=== PATIENT | male | born 1965 | race Caucasian/White ===

== ENCOUNTER 2023-10-05 16:06 | Emergency (ER) | payer BC, SELFPAY ==
[2023-10-05 16:23] VITALS: BP 149/92
[2023-10-05 16:48] LABS: % Basophils 0.7 % (0-2); % Eosinophils 6.9 % (0-6); % Immature Granulocytes 0.7 % (0-0.5); % Lymphocytes 25.5 % (20.5-51.1); % Monocytes 10.3 % (1.7-9.3); % Neutrophils 55.9 % (42.2-75.2); Absolute Basophils 0.1 10^3/uL (0-0.2); Absolute Eosinophils 0.6 10^3/uL (0-0.7); Absolute Immature Granulocytes 0.1 10^3/uL (0-0.05); Absolute Lymphocytes 2.2 10^3/uL (1.2-3.4); Absolute Monocytes 0.9 10^3/uL (0.1-0.6); Absolute Neutrophils 4.8 10^3/uL (1.4-6.5); Hematocrit 43.2 % (39.0-52.0); Mean Corp Hgb Conc. 34.7 g/dL (33.0-37.0); Mean Corpuscular Hgb 28.5 pg (27.0-31.0); Mean Platelet Volume 11.5 fL (7.4-10.4); Nucleated Red Blood Cells % 0 % (-); Platelet Count 219 10^3/uL (130-400); Red Blood Cell Count 5.27 10^6/uL (4.70-6.10); Red Cell Dist. Width 13.5 % (11.5-14.5); White Blood Cell Count 8.6 10^3/uL (4.8-10.8)
[2023-10-05 17:04] LABS: ALT (SGPT) 66 U/L (0-50); AST (SGOT) 45 U/L (17-59); Albumin 4.5 g/dl (3.5-5.0); Alkaline Phosphatase 84 U/L (38-126); Blood Urea Nitrogen 14 mg/dl (9-20); Calcium 9.5 mg/dl (8.4-10.2); Carbon Dioxide 27 mmol/L (22-30); Chloride 103 mmol/L (98-107); Glucose 114 mg/dl (70-99); Potassium 4.1 mmol/L (3.5-5.1); Sodium 136 mmol/L (135-145); Total Bilirubin 0.5 mg/dl (0.2-1.3); Total Protein 7.2 g/dl (6.3-8.2); eGFR > 60.00
[2023-10-05 17:14] LABS: NT-proBNP < 20.0 pg/ml; Troponin I < 0.012 ng/ml
--- NOTE | 2023-10-05 19:42 | ED.GENMED ---
History of Present Illness
General
Chief Complaint: Blood Pressure Problem
Source: patient
Exam Limitations: none
Time Seen by Provider: 10/05/23 18:34
Nursing documentation reviewed up to this point in time: agreed with
Travel History
Have you had any contact with someone who has COVID-19?: No
Do you have any symptoms of coronavirus? Fever > 100 degrees, chills, cough, shortness of breath, sore throat, loss of taste or smell, muscle aches, or headache?: No
History of Present Illness
History of Present Illness:
58-year-old male with past medical history of hyperlipidemia, anxiety presenting to the emergency department today with concerns of elevated blood pressure at home as well as intermittent episodes of lightheadedness headache and some shortness of
breath with exertion. Has follow-up with his primary care doctor for this has a scheduled appoint with cardiology in 1 month but was concerned that he had ongoing elevated blood pressure today in the 150s over 100s at home.
Past History
Past History
ED Past Medical History: Hypercholesterolemia, Psychiatric and Other ( kidney stones)
ED Past Surgical History: Urological
Social History
Tobacco: Former smoker
Alcohol: Occasional
Drug: None
Personal:
Living: with family
Employment: Employed
Family History
Family History: Other (His father had bladder cancer and nephrectomy)
Review of Systems
Review of Systems
Allergies reviewed?: Yes
All Other Systems: ROS reviewed and negative except as documented in HPI and ROS
Phy Exam
Physical Exam
Physical Exam:
GENERAL: Alert , in no apparent distress
EYE: pupils equal and reactive
NECK: Supple, no significant adenopathy.
ENT: o/p clr, mmm.
CARDIAC: Regular rate and rhythm .
LUNGS: Clear breath sounds bilaterally, no acute respiratory distress, no wheezes/rales/rhonchi
ABDOMEN: Soft, without focal tenderness, no r/g, no cvat
NEUROLOGICAL: Alert and oriented, no focal neuro deficits
SKIN: Warm and dry, skin intact.
MUSCULOSKELETAL: No edema, well perfused.
PSYCH: Normal and appropriate interaction.
Course
Orders/Labs/Results
Orders:
Orders
10/05/23 16:25
ECG [Electrocardiogram (*1)] Urgent
Reason for Study: Hypertension, Benign
CR Chest - 2 Views Urgent
Comment:
Reason For Exam: high blood pressure
10/05/23 16:26
EKG- Treatment ONCE
10/05/23 16:39
Complete Blood Count/With Diff Urgent
Comprehensive Metabolic Panel Urgent
NT-proBNP Urgent
Troponin I Urgent
10/05/23 19:41
EKG [Electrocardiogram (*1)] Urgent
Reason for Study: Fatigue / Weakness
EKG- Treatment ONCE
10/05/23 19:48
Troponin I Urgent
Abnormal Lab Results
10/05/23
16:39
MPV 11.5 H fL
(7.4-10.4)
Abs Immat Gran (auto) 0.1 H 10^3/uL
(0-0.05)
Absolute Monos (auto) 0.9 H 10^3/uL
(0.1-0.6)
Immature Gran % 0.7 H %
(0-0.5)
Monocytes % 10.3 H %
(1.7-9.3)
Eosinophils % 6.9 H %
(0-6)
Glucose 114 H mg/dl
(70-99)
ALT 66 H U/L
(0-50)
10/05/23 16:39
10/05/23 16:39
Vital Signs
Initial and Last Documented VS:
Initial Vital Signs
Temp Pulse Resp BP Pulse Ox
98.3 F 92 20 149/92 99
10/05/23 16:23 10/05/23 16:23 10/05/23 16:23 10/05/23 16:23 10/05/23 16:23
Last Documented Vital Signs
Temp Pulse Resp BP Pulse Ox
98.3 F 92 20 125/88 96
10/05/23 16:23 10/05/23 16:23 10/05/23 16:23 10/05/23 20:00 10/05/23 20:05
MDM/Problems Addressed
MDM/Problems Addressed:
Patient is a well-appearing 58-year-old male in no obvious distress vital signs normal upon arrival blood pressure slightly elevated in the 140s over 90s. Normal heart lung examination. Initial EKG normal labs unremarkable troponin negative. BNP
low. Repeat trop negative. Pt well appearing throughout ER stay. BP improving. Stable for outpt cardiology f/u. Return precuations given
*Critical Care Note
Total Time (30-74mins, 75-104mins- exclusive of procedures): Not Applicable
ED Attending Note
-
Portions of this chart may have been created with voice recognition software.� Occasional wrong word or��sound alike� substitutions may have occurred due to the inherent limitations of voice recognition software.
Discharge Plan
Departure
Patient Disposition: Home (Routine Discharge)
Date of Disposition: 10/05/23
Time of Disposition: 20:33
Patient with high blood pressure during this ER visit?: No
Condition: Good
Covid-19: Not Applicable
Discharge Problem:
Chest pain
Instructions: Chest Pain CBC Follow Up
Prescriptions:
No Action
rosuvastatin 10 MG tablet
10 mg PO DAILY
escitalopram oxalate 5 MG tablet
5 mg PO DAILY
Patient Comments:
on hold while on Levaquin
benzonatate 200 MG capsule
200 mg PO TIDPRN PRN (Reason: cough)
ibuprofen [Advil Liqui-Gel] 200 MG capsule
200 mg PO Q6HPRN PRN (Reason: fever)
acetaminophen 500 MG tablet
1,000 mg PO Q6HPRN PRN (Reason: fever)
zinc 50 MG tablet
50 mg PO DAILY
Bifidobacterium infantis [Align] 4 MG capsule
4 mg PO DAILY
cholecalciferol (vitamin D3) 2,000 UNITS tablet
2,000 units PO DAILY
melatonin 3 MG tablet
3 mg PO HS 0RF
aspirin 81 MG tablet,chewable
81 mg PO DAILY 0RF
dexamethasone [Decadron] 6 MG tablet
6 mg PO DAILY Qty: 2 0RF
Activity Restrictions/Additional Instructions:
You came to the ER with concerns of multiple symptoms. Here you are very reassuring evaluation. Please follow close with cardiology next week. Return to the emergency department any worsening, new or concerning symptoms.
Interventions
Interventions:
*Risk Screen - Suicide Last Done: 10/05/23 16:23
*General Assessment Last Done: 10/05/23 16:23
ED- Cardiac Assessment Last Done: 10/05/23 19:05
ED- Neurological Assessment Last Done: 10/05/23 19:05
ED- Pulmonary Assessment Last Done: 10/05/23 19:05
[2023-10-05 20:00] VITALS: BP 125/88
[2023-10-05 20:21] LABS: Troponin I < 0.012 ng/ml
[2023-10-05 20:40] VITALS: BP 133/94
== END 2023-10-05 20:50 | disposition home or self-care (01) ==
LOC: EMR 16:06
PROVIDERS: Emergency Medicine; Physician Assistant; EMERGENCY PHYSICIAN Emergency Medicine; FAMILY PHYSICIAN Family Medicine
DX: R07.89 Other chest pain (principal); I10 Essential (primary) hypertension; E78.00 Pure hypercholesterolemia, unspecified; F41.9 Anxiety disorder, unspecified; Z87.442 Personal history of urinary calculi; Z87.891 Personal history of nicotine dependence
CPT/HCPCS: 99283; 71046; 80053; 83880; 84484; 85025; 93005

== ENCOUNTER → 2023-10-09 15:11 | Outpatient (REF) | payer SELFPAY | LOC: HWRAD 15:11 | PROVIDERS: ATTENDING PHYSICIAN Family Medicine | DX: E78.2 Mixed hyperlipidemia (principal) | CPT/HCPCS: 75571 ==

== ENCOUNTER → 2023-10-10 09:31 | Outpatient (REF) | payer BC, SELFPAY | LOC: HWRAD 09:31 | PROVIDERS: ATTENDING PHYSICIAN Family Medicine | DX: R19.00 Intra-abdominal and pelvic swelling, mass and lump, unspecified site (principal) | CPT/HCPCS: 74177; Q9967 ==

== ENCOUNTER → 2023-10-30 14:47 | Outpatient (REF) | payer BC, SELFPAY | LOC: DHCBC HW 14:47 | PROVIDERS: ATTENDING PHYSICIAN Internal Medicine Cardiovascular Disease; FAMILY PHYSICIAN Family Medicine | DX: I10 Essential (primary) hypertension (principal); R94.31 Abnormal electrocardiogram [ECG] [EKG] | CPT/HCPCS: 93306 ==

== ENCOUNTER 2024-06-30 20:22 | Emergency (ER) | payer BC, SELFPAY ==
[2024-06-30 20:26] VITALS: BP 149/113
[2024-06-30 20:42] LABS: % Basophils 0.2 % (0-2); % Eosinophils 8.5 % (0-6); % Immature Granulocytes 0.5 % (0-0.5); % Lymphocytes 15.9 % (20.5-51.1); % Monocytes 10.5 % (1.7-9.3); % Neutrophils 64.4 % (42.2-75.2); Absolute Eosinophils 1.2 10^3/uL (0-0.7); Absolute Immature Granulocytes 0.1 10^3/uL (0-0.05); Absolute Lymphocytes 2.3 10^3/uL (1.2-3.4); Absolute Monocytes 1.5 10^3/uL (0.1-0.6); Absolute Neutrophils 9.1 10^3/uL (1.4-6.5); Hematocrit 50.3 % (39.0-52.0); Hemoglobin 16.9 g/dL (13.0-18.0); Mean Corp Hgb Conc. 33.6 g/dL (33.0-37.0); Mean Corpuscular Hgb 27.8 pg (27.0-31.0); Mean Corpuscular Volume 82.7 fL (80.0-94.0); Mean Platelet Volume 10.9 fL (7.4-10.4); Nucleated Red Blood Cells % 0 % (-); Platelet Count 255 10^3/uL (130-400); Red Blood Cell Count 6.08 10^6/uL (4.70-6.10); Red Cell Dist. Width 13.5 % (11.5-14.5); White Blood Cell Count 14.1 10^3/uL (4.8-10.8)
[2024-06-30 21:07] LABS: ALT (SGPT) 30 U/L (0-50); AST (SGOT) 21 U/L (17-59); Albumin 4.7 g/dl (3.5-5.0); Alkaline Phosphatase 66 U/L (38-126); Blood Urea Nitrogen 16 mg/dl (9-20); Calcium 9.4 mg/dl (8.4-10.2); Carbon Dioxide 25 mmol/L (22-30); Chloride 99 mmol/L (98-107); Glucose 100 mg/dl (70-99); Potassium 4.4 mmol/L (3.5-5.1); Sodium 140 mmol/L (135-145); Total Bilirubin 0.6 mg/dl (0.2-1.3); Total Protein 7.3 g/dl (6.3-8.2); eGFR > 60.00
[2024-06-30 21:20] LABS: Lipase 44 U/L (23-300)
[2024-06-30 21:37] VITALS: BMI 30.4
[2024-06-30 21:38] VITALS: BP 104/81
--- NOTE | 2024-06-30 22:17 | ED.GENMED ---
History of Present Illness
General
Chief Complaint: Abdominal Pain
Source: patient
Exam Limitations: none
Time Seen by Provider: 06/30/24 22:04
Nursing documentation reviewed up to this point in time: agreed with
History of Present Illness
History of Present Illness:
Patient presents to ED secondary to persistent nonbloody diarrhea with decreased appetite over the past 3 days, along with 'stomach gurgling'. Denies fever or chills. Denies nausea or vomiting. Denies trauma. Patient states that he started to
take Zepbound again, after missing it for 3 weeks, secondary to supply issues. When he took his first dose 2 weeks ago, he experienced 'minor symptoms'. When he took his second dose 4 days ago, his symptoms became more severe. Patient denies
dizziness. Denies shortness of breath. Denies generalized weakness. Patient reports having received normal colonoscopy and Cologuard testing 10 years ago. There is no family history of colon cancer.
Past History
Past History
ED Past Medical History: Hypercholesterolemia, Psychiatric and Other ( kidney stones)
ED Past Surgical History: Urological
Social History
Tobacco: Former smoker
Alcohol: Occasional
Drug: None
Personal:
Living: with family
Employment: Employed
Family History
Family History: Other (His father had bladder cancer and nephrectomy)
Review of Systems
Review of Systems
Allergies reviewed?: Yes
All Other Systems: ROS reviewed and negative except as documented in HPI and ROS
Constitutional: Reports no symptoms; Denies fever
EENT: Reports no symptoms
Respiratory: Reports no symptoms
Cardiac: Reports no symptoms
ABD/GI: Reports abdominal pain and diarrhea; Denies nausea, vomiting, bloody stools or black stools
Musculoskeletal: Reports no symptoms
Skin: Reports no symptoms
Neurological: Reports no symptoms
Phy Exam
Physical Exam
Physical Exam:
Physical Exam
General: mild distress, not acutely ill. afebrile
Head: nc/at. eomi
Neck: supple. no meningeal signs.
Heart: s1/s2 regular rate and rhythm, no murmur. equal radial pulses.
Lungs: no acute respiratory distress. clear bilaterally
Abdomen: normal bowel sounds. not tender. no distention
Neuro: alert and oriented. no focal neurological deficits
Skin: no rash
Psychiatric: well kept. interactive and cooperative
Extremities: no edema. no calf tenderness.
Course
Orders/Labs/Results
Orders:
Orders
06/30/24 20:33
Complete Blood Count/With Diff Urgent
Comprehensive Metabolic Panel Urgent
Lipase Urgent
Comment: ADD ON
Magnesium Urgent
Comment: ADD ON
06/30/24 20:46
Add On- LAB Urgent
Tests Added?: lipase
06/30/24 22:15
Add On- LAB Urgent
Tests Added?: magnesium
06/30/24 22:16
0.9% Sodium Chloride 1000 ml [Nss] 1,000 ml IV BOLUS
Ketorolac [Toradol] 15 mg IV NOW STA
Pantoprazole [Protonix IV] 40 mg IV NOW STA
07/01/24 00:30
CT Abd/pelvis W Iv Cont Urgent
Reason For Exam: LLQ pain
Abnormal Lab Results
06/30/24
20:33
WBC 14.1 H 10^3/uL
(4.8-10.8)
MPV 10.9 H fL
(7.4-10.4)
Abs Immat Gran (auto) 0.1 H 10^3/uL
(0-0.05)
Absolute Neuts (auto) 9.1 H 10^3/uL
(1.4-6.5)
Absolute Monos (auto) 1.5 H 10^3/uL
(0.1-0.6)
Absolute Eos (auto) 1.2 H 10^3/uL
(0-0.7)
Lymphocytes % 15.9 L %
(20.5-51.1)
Monocytes % 10.5 H %
(1.7-9.3)
Eosinophils % 8.5 H %
(0-6)
Glucose 100 H mg/dl
(70-99)
06/30/24 20:33
06/30/24 20:33
Vital Signs
Initial and Last Documented VS:
Initial Vital Signs
Temp Pulse Resp BP Pulse Ox
98.3 F 104 19 149/113 98
06/30/24 20:26 06/30/24 20:26 06/30/24 20:26 06/30/24 20:26 06/30/24 20:26
Last Documented Vital Signs
Temp Pulse Resp BP Pulse Ox
98.3 F 104 19 119/91 98
06/30/24 20:26 06/30/24 20:26 06/30/24 20:26 07/01/24 01:00 07/01/24 01:15
MDM/Problems Addressed
MDM/Problems Addressed:
CT abdomen pelvis report reviewed and discussed with patient. Mild leukocytosis, likely reactive. Patient's presenting symptoms likely secondary to medication effect from recently starting Zepbound, but difficult to exclude entirely other
etiology, including viral illness. As such, advised patient to discuss with his primary care physician about stopping the medication short-term. Patient will take [id number] Imodium for symptomatic relief, along with continual hydration at
home.
*Critical Care Note
Total Time (30-74mins, 75-104mins- exclusive of procedures): Not Applicable
ED Attending Note
-
Portions of this chart may have been created with voice recognition software.� Occasional wrong word or��sound alike� substitutions may have occurred due to the inherent limitations of voice recognition software.
Discharge Plan
Departure
Patient Disposition: Home (Routine Discharge)
Date of Disposition: 07/01/24
Time of Disposition: 01:27
Patient with high blood pressure during this ER visit?: Yes
Discharge Problem:
Abdominal pain
Instructions: Abdominal Pain
Prescriptions:
No Action
rosuvastatin 10 MG tablet
10 mg PO DAILY
escitalopram oxalate 5 MG tablet
5 mg PO DAILY
Patient Comments:
on hold while on Levaquin
benzonatate 200 MG capsule
200 mg PO TIDPRN PRN (Reason: cough)
ibuprofen [Advil Liqui-Gel] 200 MG capsule
200 mg PO Q6HPRN PRN (Reason: fever)
acetaminophen 500 MG tablet
1,000 mg PO Q6HPRN PRN (Reason: fever)
zinc 50 MG tablet
50 mg PO DAILY
Bifidobacterium infantis [Align] 4 MG capsule
4 mg PO DAILY
cholecalciferol (vitamin D3) 2,000 UNITS tablet
2,000 units PO DAILY
melatonin 3 MG tablet
3 mg PO HS 0RF
aspirin 81 MG tablet,chewable
81 mg PO DAILY 0RF
dexamethasone [Decadron] 6 MG tablet
6 mg PO DAILY Qty: 2 0RF
Referrals:
Herbie Byrd MD [Family Provider] -
Activity Restrictions/Additional Instructions:
As discussed, please follow-up with your primary care physician with any further concerns.
Interventions
Interventions:
*Risk Screen - Suicide Last Done: 06/30/24 20:28
*General Assessment Last Done: 06/30/24 20:28
*Neglect/Abuse Screening Last Done: 06/30/24 20:28
ED- Fall Risk Assessment Last Done: 06/30/24 21:37
*ED COVID-19 Vaccine History Last Done: 06/30/24 20:28
*Nursing Disposition Last Done: 07/01/24 01:32
JN-Zhidpi-Cjadfbvztc Assessment Last Done: 06/30/24 21:36
Discharge Date and Time
Discharge Date/Time: 07/01/24 01:37
Print Language: [place]
[2024-06-30 22:26] LABS: Magnesium 2.1 mg/dl (1.6-2.3)
[2024-06-30] MEDS: TORADOL 15 MG IV (22:26)
[2024-06-30] MEDS: PROTONIX IV 40 MG IV (22:26)
[2024-06-30] MEDS: NSS 1000 IV (22:26)
[2024-06-30 23:00] VITALS: BP 122/80
[2024-07-01] VITALS: BP 114/91
[2024-07-01 01:00] VITALS: BP 119/91
== END 2024-07-01 01:37 | disposition home or self-care (01) ==
LOC: EMR 20:22
PROVIDERS: Emergency Medicine; EMERGENCY PHYSICIAN Emergency Medicine; FAMILY PHYSICIAN Family Medicine
DX: R10.9 Unspecified abdominal pain (principal); R19.7 Diarrhea, unspecified; E78.00 Pure hypercholesterolemia, unspecified; Z87.891 Personal history of nicotine dependence
CPT/HCPCS: 99284; 96374; 96375; 96361; 74177; 80053; 83690; 83735; 85025; Q9967

== ENCOUNTER → 2024-10-06 13:05 | Outpatient (REF) | payer BC, SELFPAY | LOC: HWRAD 13:05 | PROVIDERS: ATTENDING PHYSICIAN Family Medicine | DX: R19.09 Other intra-abdominal and pelvic swelling, mass and lump (principal) | CPT/HCPCS: 74176 ==

== ENCOUNTER 2025-03-23 06:24 | Day surgery (SDC) | payer BC, SELFPAY ==
[2025-03-09 14:17] VITALS: BMI 32.2
[2025-03-23] VITALS (10 sets, daily range): BP systolic 122–148; BP diastolic 64–91; BMI 32.2
[2025-03-23] MEDS: TYLENOL 1000 MG PO (09:44)
[2025-03-23] MEDS: HEPARIN 5000 UNITS SC (09:44)
[2025-03-23] MEDS: NORMOSOL-R/PLASMALYTE-A 1000 IV (09:45)
--- NOTE | 2025-03-23 11:04 | OR.RPT ---
Operative Report
Operative Report
Primary Surgeon: Cj
Assisting: Juvenal NOVAK
Pre-op Diagnosis: Right inguinal hernia
Post-op Diagnosis: Same
Procedure Performed: Robot assisted laparoscopic rep[air right inguinal hernia
Anesthesia Type: GETA
Specimen / Cultures: None
Estimated Blood Loss: 2cc
Complications: None immediate
Operative Findings: Indirect defect, fatty cord; XL MID 3D Max
Date of Surgery: 03/23/25
Indications: This 60M developed symptomatic right inguinal hernia. Robot assisted laparoscopic repair was elected
Description of procedure:� The patient was taken to the operating room and positioned into supine position. The patient�s abdomen was prepped and draped in standard sterile fashion. A time-out was completed verifying correct patient, procedure,
site, positioning, and implants and special equipment prior to beginning this procedure. The groin hernias were manually reduced.
A stab incision was made in the left upper quadrant, a Veress needle was inserted and proper position was confirmed by aspiration and saline drop test. Following this, pneumoperitoneum was created with insufflation of carbon dioxide to 12 mmHg. Then
a 8mm robotic trocar was inserted above and to the left of the umbilicus. A laparoscope was inserted and the area of initial trocar entry and Veress needle placement were both inspected and no injuries were found. Two 8mm trocars were then placed
lateral to the rectus sheath under direct visualization.
Both inguinal regions were inspected and the median umbilical ligament, medial umbilical ligament, and lateral umbilical fold were identified. Attention was turned to the right groin. The peritoneum was incised transversely above the defect and a
flap was developed in the caudad direction. Navin�s ligament was identified ultimately dissected to its junction with the iliac vein and the space of Retzius was developed bluntly. The dissection was continued inferiorly to the iliopubic tract,
with care taken to avoid injury to the femoral branch of the genitofemoral nerve and the lateral femoral cutaneous nerve. The cord structures were parietalized.
The direct space was inspected and no hernia defect was identified. The femoral space was inspected and no defect was identified. The indirect space was inspected and a defect was identified and reduced by gentle traction. The canal was inspected
and no cord lipoma was identified but the cord was fatty.
Extra large right MID 3D max mesh was passed through a trocar. The mesh was placed into the preperitoneal space and moved into position to lay flat and completely cover the direct, indirect, and femoral spaces with overlap at the midline. The mesh
was secured into place using 2-0 vicryl suture to Navin�s ligament medially and laterally. Care was taken to avoid the inferolateral triangles containing the iliac vessels and genital nerves. The peritoneal flap was closed over the mesh and secured
with 2-0 monocryl stratafix suture in similar positions of safety. A small flap rent at the inferior aspect of the flap was repaired with 2-0 vicryl suture. A 14g angiocath was used to decompress the preperitoneal space revealing good seal and all
mesh in good position without folding or curling.
After ensuring adequate hemostasis, the trocars were removed and the pneumoperitoneum allowed to escape. The trocar incisions were closed at the skin level using 4-0 monocryl and topical skin adhesive. All counts were correct and the patient
tolerated the procedure well and was taken to the postanesthesia care unit in stable condition.
[2025-03-23] MEDS: DILAUDID 0.5 MG IV (11:58)
[2025-03-23] MEDS: DILAUDID 0.25 MG IV (12:11)
[2025-03-23] MEDS: ROXICODONE 5 MG PO (12:52)
== END 2025-03-23 14:00 | disposition home or self-care (01) ==
LOC: SDS 06:24
PROVIDERS: ATTENDING PHYSICIAN Surgery; FAMILY PHYSICIAN Family Medicine
DX: K40.90 Unilateral inguinal hernia, without obstruction or gangrene, not specified as recurrent (principal)
CPT/HCPCS: 49650; 36415; 93005; C1781